=== PATIENT | female | born 1990 | race American Indian/Alaskan Native ===

== ENCOUNTER 2021-11-09 01:14 | Inpatient (IN) | payer SELFPAY ==
[2021-11-09] MEDS ORDERED: LACTATED RINGERS 1,000 ML ONE (04:46)
[2021-11-09] MEDS ORDERED: fentaNYL 100 MCG/2 ML INJ IV PRN (04:47)
[2021-11-09] MEDS ORDERED: ACETAMINOPHEN 325 MG TAB PO PRN (04:47)
[2021-11-09] MEDS ORDERED: TERBUTALINE 1 MG/1 ML INJ SUB-Q PRN (04:47)
[2021-11-09] MEDS ORDERED: CARBOPROST TROMETHAMINE 250 MCG/1 ML INJ IM PRN (04:47)
[2021-11-09] MEDS ORDERED: ePHEDrine SULFATE 50 MG/1 ML INJ IV PRN ×2 (04:47→08:00)
[2021-11-09] MEDS ORDERED: LOPERAMIDE 2 MG CAP PO PRN (04:47)
[2021-11-09] MEDS ORDERED: BUTORPHANOL 2 MG/1 ML INJ IV PRN (04:47)
[2021-11-09] MEDS ORDERED: MINERAL OIL 30 ML ORAL LIQD PO PRN (04:47)
[2021-11-09] MEDS ORDERED: miSOPROStol 200 MCG TAB PR PRN (04:47)
[2021-11-09] MEDS ORDERED: LIDOCAINE (2%) 20 MG/1 ML VIAL 20 ML MDV INFILTRATI ONE (04:47)
[2021-11-09] MEDS ORDERED: ONDANSETRON 4 MG/2 ML INJ IV PRN (04:47)
[2021-11-09] MEDS ORDERED: NALOXONE 0.4 MG/1 ML INJ IV PRN ×2 (04:47→07:25)
[2021-11-09] MEDS ORDERED: OXYTOCIN 10 UNIT/1 ML INJ IM PRN (04:47)
[2021-11-09] MEDS ORDERED: METHYLERGONOVINE MALEATE 0.2 MG/ML VIAL IM PRN (04:47)
[2021-11-09] MEDS ORDERED: LACTATED RINGERS 1,000 ML IV SCH (05:00)
[2021-11-09] MEDS ORDERED: OXYTOCIN DRIP 30 UNITS/500 ML BAG IV SCH ×4 (05:00→07:00)
[2021-11-09 06:47] LABS: Hematocrit 40.5 % (30.3-42.9); Hemoglobin 13.5 gm/dl (10.1-14.3); Mean Corpuscular HGB Conc 33 % (30-34); Mean Corpuscular Volume 94 fl (79-97); Platelet Count 186 K/mm3 (140-440); Red Blood Count 4.32 M/mm3 (3.65-5.03); Red Cell Distribution Width 14.4 % (13.2-15.2)
--- NOTE | 2021-11-09 07:19 | Anesthesia Consultation ---
Anesthesia Consult and Med Hx Date of service: 11/09/21 - Airway Anesthetic Teeth Evaluation: Good ROM Head & Neck: Adequate Mental/Hyoid Distance: Adequate Mallampati Class: Class II Intubation Access Assessment: Good - Pulmonary Exam CTA: Yes - Cardiac Exam Cardiac Exam: RRR - Pre-Operative Health Status ASA Pre-Surgery Classification: ASA2 Proposed Anesthetic Plan: Epidural - Pulmonary Hx Asthma: No COPD: No Hx Pneumonia: No - Cardiovascular System Hx Hypertension: No - Central Nervous System Hx Seizures: No Hx Psychiatric Problems: No - Endocrine Hx Renal Disease: No Hx End Stage Renal Disease: No Hx Hypothyroidism: No Hx Hyperthyroidism: No - Hematic Hx Anemia: No Hx Sickle Cell Disease: No - Other Systems Hx Alcohol Use: No Hx Substance Use: No
--- NOTE | 2021-11-09 07:23 | Progress Note ---
Labor Epidural - Labor Epidural Start Time: 06:55 Stop Time: 07:05 Performed by:: NETO LIZAMA Procedure: Patient is requesting epidural for labor pain. H&P and labs reviewed. Procedure explained, questions answered, consent obtained. Patient placed in sitting position with monitors applied. Timeout performed immediately before start of procedure. Prep/drape in usual sterile fashion. Skin localized 3 mL 1% lidocaine at L[3]-L[4] interspace. 17-gauge Touhy epidural needle advanced to KALYN with saline at [4] cm x 2 attempts. No blood/CSF noted via epidural needle. Epidural catheter advanced to [10] cm. Negative aspiration for blood and CSF via catheter, negative response to test dose 3 ml 1.5% lidocaine w/ Epi. Sterile dressing applied followed by tape reinforcement. Patient tolerated procedure well. No immediate complications noted.
[2021-11-09] MEDS ORDERED: fentaNYL-BUPIV 2 MCG/ML-0.125% 200 MCG/100 ML BAG EPIDURAL SCH (08:00)
--- NOTE | 2021-11-09 08:20 | History and Physical Report ---
History of Present Illness Date of examination: 11/09/21 Date of admission: 11/09/21 04:47 Chief complaint: active labor at term History of present illness: 31 yo, G1 @ 39.0 wks, initiated care with [facility] steam meter reader at 27 wks as a transfer from [place]. Her has been complicated by polyhydramnios (co- managed by [facility], resolved on 10/06/21). Presents to [facility] this AM with reports of painful ctxs, cervix was found to have dilation of 5 cms with a bulging bag. Reports +FM. Denies any VB or LOF. Labs: O+, antibody negative; rubella unknown, VDRL negative, HIV negative, HBsAg negative, HSV2 negative, Hep C negative, GC/Chlamydia/Trichomonas negative, 1 hr gtt 80, GBS negative. Past History Past Medical History: no pertinent history Past Surgical History: no surgical history LAB TECHNICIAN History: other (irregular menses) Family/Genetic History: hypertension Social history: single, lives with family, full code. denies: smoking, alcohol abuse, prescription drug abuse, IV drug use - Obstetrical History Expected Date of Delivery: 11/16/21 Actual Gestation: 39 Week(s) 0 Day(s) : 1 Para: 0 Hx # Term Pregnancies: 0 Number of Pregnancies: 0 Spontaneous Abortions: 0 Induced : 0 Number of Living Children: 0 Medications and Allergies Allergies Allergy/AdvReac Type Severity Reaction Status Date / Time No Known Allergies Allergy Unverified 11/09/21 04:24 Active Meds: Active Medications Acetaminophen (Acetaminophen 325 Mg Tab) 650 mg PO Q4H PRN PRN Reason: Pain, Mild (1-3) Butorphanol Tartrate (Butorphanol 2 Mg/1 Ml Inj) 1 mg IV Q2H PRN PRN Reason: Pain, Moderate(4-6) LABOR PAIN Carboprost Tromethamine (Carboprost Tromethamine 250 Mcg/1 Ml Inj) 250 mcg IM ONCE PRN PRN Reason: Uterine Bleeding Ephedrine Sulfate (Ephedrine Sulfate 50 Mg/1 Ml Inj) 10 mg IV Q2M PRN PRN Reason: Hypotension Fentanyl (Fentanyl 100 Mcg/2 Ml Inj) 100 mcg IV Q2H PRN PRN Reason: Pain,Severe (7-10) LABOR PAIN Last Admin: 11/09/21 05:08 Dose: 100 mcg Lactated Ringer's (Lactated Ringers) 1,000 mls @ 125 mls/hr IV DIRECT FLEX Oxytocin/Sodium Chloride (Pitocin/Ns 30 Unit/500ml) 30 units in 500 mls @ 2 mls/hr IV TITR FLEX; Protocol Oxytocin/Sodium Chloride (Pitocin/Ns 30 Unit/500ml) 30 units in 500 mls @ 40 mls/hr IV TITR FLEX; Protocol Fentanyl/Bupivacaine/Sodium Chlor (Fentanyl-Bupiv 2 Mcg/Ml-0.125%) 200 mcg in 100 mls @ 12 mls/hr EPIDURAL TITR FLEX; Protocol Loperamide HCl (Loperamide 2 Mg Cap) 2 mg PO ONCE PRN PRN Reason: give with Hemabate Methylergonovine Maleate (Methylergonovine Maleate 0.2 Mg/Ml Vial) 0.2 mg IM ONCE PRN PRN Reason: Uterine Bleeding Mineral Oil (Mineral Oil 30 Ml Oral Liqd) 30 ml PO QHS PRN PRN Reason: Constipation Misoprostol (Misoprostol 200 Mcg Tab) 800 mcg AK ONCE PRN PRN Reason: Uterine Bleeding Naloxone HCl (Naloxone 0.4 Mg/1 Ml Inj) 0.2 mg IV Q5MIN PRN PRN Reason: Respiratory sedation Ondansetron HCl (Ondansetron 4 Mg/2 Ml Inj) 4 mg IV Q8H PRN PRN Reason: Nausea And Vomiting Oxytocin (Oxytocin 10 Unit/1 Ml Inj) 10 unit IM ONCE PRN PRN Reason: Uterine Bleeding Terbutaline Sulfate (Terbutaline 1 Mg/1 Ml Inj) 0.25 mg SUB-Q ONCE PRN PRN Reason: Hyperstimulation/Hypertonicity Review of Systems All systems: negative Genitourinary: contractions - Vital Signs Vital signs: Vital Signs Temp Pulse Resp BP Pulse Ox 99.1 F 64 20 134/79 97 11/09/21 02:05 11/09/21 02:05 11/09/21 02:05 11/09/21 02:05 11/09/21 02:05 Temp Pulse Resp BP Pulse Ox 98.9 F 54 L 20 100/57 99 11/09/21 04:56 11/09/21 08:17 11/09/21 04:22 11/09/21 08:17 11/09/21 08:16 - Physical Exam Breasts: Positive: normal Cardiovascular: Regular rate Lungs: Positive: Normal air movement Abdomen: Positive: other (gravid) Genitourinary (Female): Positive: normal external genitalia, normal perenium Vagina: Positive: normal moisture Uterus: Positive: enlarged (S=D) Extremities: Positive: normal Deep Tendon Reflex Grade: Normal +2 - Obstetrical FHR: category 1 (with occasional early decelerations) Uterine Contraction Monitor Mode: External Cervical Dilatation: 9 (vertex) Cervical Effacement Percentage: 80 station: -1 Uterine Contraction Frequency (min): 4-6 Uterine Contraction Pattern: Irregular Uterine Tone Measurement Phase: Resting Uterine Contraction Intensity: Moderate Results Result Diagrams: 11/09/21 06:16 Abnormal lab results 11/09/21 Range/Units 06:16 WBC 15.3 H (4.5-11.0) K/mm3 All other labs normal. Assessment and Plan - Patient Problems (1) Active labor at term Current Visit: Yes Status: Acute Plan to address problem: AROM @ 0826, clear fluids, tolerated well Comfortable with epidural Initiate Pitocin as tolerated Anticipate
[2021-11-09] MEDS ORDERED: MAGNESIUM HYDROXIDE (MOM) ORAL LIQD UDC PO PRN (17:07)
[2021-11-09] MEDS ORDERED: WITCH HAZEL/ GLYCERIN PAD TP PRN (17:07)
[2021-11-09] MEDS ORDERED: diphenhydrAMINE 25 MG CAP PO PRN (17:07)
[2021-11-09] MEDS ORDERED: PROMETHAZINE 25 MG TAB PO PRN (17:07)
[2021-11-09] MEDS ORDERED: LANOLIN/ZINC/DIMETHICONE (LANSINOH) 7 GM TP PRN (17:07)
[2021-11-09] MEDS ORDERED: oxyCODONE /ACETAMINOPHEN 5-325MG TAB PO PRN (17:07)
--- NOTE | 2021-11-09 17:15 | Procedure Note ---
OB Delivery Note - Delivery Date of Delivery: 11/09/21 (1643) Surgeon: DALJIT HASSAN (CNM) Estimated blood loss: 300cc - Vaginal Delivery presentation: vertex Delivery position: OA (CAITY) Intrapartum events: none Delivery induction: none Delivery augmentation: rupture of membranes (AROM @ 0826, clear fluids), pitocin Delivery monitor: external FHT, external uterine Route of delivery: Delivery placenta: spontaneous (1646, sahni) Delivery cord: 3 umbilical vessels Episiotomy: midline Delivery laceration: none Delivery repair: vicryl (3.0-CT) Anesthesia: epidural Delivery comments: of viable crying, male infant placed directly to maternal abdomen. Cord double clamped and cut by myself after 1 min, handed over to KEATON nurse. Placenta spontaneously delivered, disposed per hospital policy. Uterus firm @ U-3, hemostasis maintained. Perineum with midline episiotomy, repaired. Mother and baby safe, stable and left in care of RN. - A at 1 minute: 8 at 5 minutes: 9 Gender: Male (Weight: 3140gms (6lbs 15ozs) 20.5 inches)
[2021-11-09] MEDS: DOCUSATE SODIUM 100 MG CAP PO SCH (23:53)
[2021-11-09] MEDS: IBUPROFEN 800 MG TAB PO SCH (23:53)
[2021-11-10 05:00] LABS: Hematocrit 32.6 % (30.3-42.9); Hemoglobin 10.8 gm/dl (10.1-14.3)
--- NOTE | 2021-11-10 09:01 | Discharge Summary ---
Providers - Providers Date of Admission: 11/09/21 04:47 Date of discharge: 11/11/21 Attending physician: YUE MAC 11/09/21 17:09 Consult to Upper Extremity Surgeon [CONS] Routine Reason For Exam: assistance with , SNS Primary care physician: YUE MAC Hospitalization Reason for admission: active labor Delivery: Episiotomy: midline (healing as expected) Other procedures: none complications: none Discharge diagnosis: IUP at term delivered [place] baby: male Hospital course: 31 yo, G1 @ 39.0 wks, initiated care with [facility] hematology technician at 27 wks as a transfer from [facility]. Her has been complicated by polyhydramnios (co- managed by [facility], resolved on 10/06/21). Presents to [facility] this AM with reports of painful ctxs, cervix was found to have dilation of 5 cms with a bulging bag. Reports +FM. Denies any VB or LOF. Labs: O+, antibody negative; rubella unknown, VDRL negative, HIV negative, HBsAg negative, HSV2 negative, Hep C negative, GC/Chlamydia/Trichomonas negative, 1 hr gtt 80, GBS negative. course uncomplicated, desires to go home tomorrow. Condition at discharge: Good Disposition: 01 HOME / SELF CARE / HOMELESS - Discharge Diagnoses (1) Status post normal vaginal delivery Status: Acute (2) Anemia Status: Acute Qualifiers: Anemia type: other cause Other causes of anemia: acute posthemorrhagic Qualified Code(s): D62 - Acute posthemorrhagic anemia Comment: Asymptomatic Increase iron rich foods into diet Plan - Discharge Medications Prescriptions: Ibuprofen [Motrin 800 MG tab] 800 mg PO Q8HR #30 tablet - Provider Discharge Summary Activity: routine, no sex for 6 weeks, no heavy lifting 4 weeks, no strenuous exercise Diet: other (Iron rich diet) Instructions: routine Additional instructions: [] Smoking cessation referral if applicable(refer to patient education folder for contact #) [] Refer to [facility] Booklet Call your doctor immediately for: * Fever > 100.5 * Heavy vaginal bleeding ( >1 pad per hour) * Severe persistent headache * Shortness of breath * Reddened, hot, painful area to leg or breast * Drainage or odor from incision. * Keep episiotomy site clean and dry at all times and follow doctor's instructions regarding bathing/showering - Follow up plan Follow up: YUE MAC MD [Primary Care Provider] - 6 Weeks
[2021-11-10] MEDS: DOCUSATE SODIUM 100 MG CAP PO SCH (09:04)
[2021-11-10] MEDS: IBUPROFEN 800 MG TAB PO SCH (09:04)
--- NOTE | 2021-11-10 11:21 | Post Anesthesia Evaluation ---
- Post Anesthesia Evaluation Patient Participated: Yes Airway Patent: Yes Stable Respiratory Function: Yes Nausea/Vomiting: No Temp > 96.8F: Yes Pain Manageable: Yes Adequeate Hydration: Yes Anesthesia Complications: No Block Receding Appropriately: Yes Patient on Ventilator: No
[2021-11-11] MEDS: IBUPROFEN 800 MG TAB PO SCH ×2 (00:21→06:33)
[2021-11-11] MEDS: DOCUSATE SODIUM 100 MG CAP PO SCH (00:21)
[2021-11-11 19:26] VITALS: BP 127/69
== END 2021-11-11 19:17 | disposition home or self-care (01) | DRG 806 ==
LOC: TRG 01:14 → APU 03:20 → LD 04:01 → TRG 04:47 → LD 04:47 → OB 23:00
PROVIDERS: ADMIT Obstetrics & Gynecology; ATTEND Obstetrics & Gynecology
PROC: 10E0XZZ Delivery of Products of Conception, External Approach (ICD-10-PCS; principal; 2021-11-09)
PROC: 3E0R3BZ Introduction of Anesthetic Agent into Spinal Canal, Percutaneous Approach (ICD-10-PCS; 2021-11-09)
PROC: 00HU33Z Insertion of Infusion Device into Spinal Canal, Percutaneous Approach (ICD-10-PCS; 2021-11-09)
PROC: 10907ZC Drainage of Amniotic Fluid, Therapeutic from Products of Conception, Via Natural or Artificial Opening (ICD-10-PCS; 2021-11-09)
PROC: 0W8NXZZ Division of Female Perineum, External Approach (ICD-10-PCS; 2021-11-09)
DX: O90.81 Anemia of the puerperium (principal); D62 Acute posthemorrhagic anemia; Z37.0 Single live birth; Z3A.39 39 weeks gestation of pregnancy; Z20.822 Contact with and (suspected) exposure to COVID-19
CPT/HCPCS: 36415; 85014; 85018; 85027; 86762; 86850; 86900; 86901; G0378; J3490; J2590; J3010; J7120; U0003